=== PATIENT | female | born 2000 | race Caucasian/White ===

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

== ENCOUNTER 2024-07-18 12:59 | Emergency (ER) | payer OTHER ==
[2024-07-18 13:13] VITALS: BP 134/89; PULSE 88; RESP 20; TEMP 98.5; BMI 32.3
[2024-07-18] MEDS ORDERED: LIDOCAINE 4% PATCH TP ONE (14:19)
[2024-07-18] MEDS ORDERED: IBUPROFEN 600 MG TABLET (FP) PO ONE (14:19)
[2024-07-18] MEDS ORDERED: METHOCARBAMOL 500 MG TABLET ONE (14:20)
[2024-07-18] MEDS: LIDOCAINE 4% PATCH TP ONE (14:27)
[2024-07-18] MEDS: METHOCARBAMOL 500 MG TABLET PO ONE (14:28)
[2024-07-18] MEDS: IBUPROFEN 600 MG TABLET (FP) PO ONE (14:28)
[2024-07-18] MEDS ORDERED: ACETAMINOPHEN 500 MG TABLET (FP) ONE (14:53)
[2024-07-18] MEDS: ACETAMINOPHEN 500 MG TABLET (FP) PO ONE (14:57)
== END 2024-07-18 15:36 | disposition home or self-care (01) ==
LOC: JERFT 12:59
DX: S16.1XXA Strain of muscle, fascia and tendon at neck level, initial encounter (principal); X50.1XXA Overexertion from prolonged static or awkward postures, initial encounter
CPT/HCPCS: 99283-25